=== PATIENT | male | born 1950 | race African-American/Black ===

== ENCOUNTER 2016-10-05 07:19 | Emergency (ER) | payer MEDICARE, OTHER ==
[~2016-10-05] VITALS: Ht 180.3 cm; Wt 89.1 kg
[~2016-10-05 07:19] MED LIST: AMOX250C4 PO; CARI350T PO; LORA10CA PO; PERCT10 PO
[2016-10-05] MEDS ORDERED: SODIUM CHLORIDE 0.9% 1,000 ML IV ONE (07:45)
[2016-10-05] MEDS ORDERED: ONDANSETRON HCL 4 MG/2 ML VIAL IVP ONE (07:45)
[2016-10-05 07:55] LABS: BASOPHILS % (AUTO) 0.6 % (0.0-2.0); EOSINOPHILS % (AUTO) 4.8 % (1.0-6.0); LYMPHOCYTES # (AUTO) 3.5 K/uL (1.0-4.8); LYMPHOCYTES % (AUTO) 38.1 % (22.0-44.0); MEAN CORPUSCULAR HEMOGLOBIN 26.3 pg (26.0-34.0); MEAN CORPUSCULAR HGB CONC 30.8 G/dL (31.0-37.0); MEAN CORPUSCULAR VOLUME 85 fL (80-100); MONOCYTES % (AUTO) 10.6 % (2.0-9.0); NEUTROPHILS # (AUTO) 4.2 K/uL (1.8-7.7); NEUTROPHILS % (AUTO) 45.9 % (40.0-70.0); PLATELET COUNT (AUTO) 280 K/uL (150-450); RED BLOOD CELL COUNT(AUTO) 5.71 MIL/uL (4.50-5.90); RED CELL DISTRIBUTION WIDTH 14.7 % (11.5-14.5); WHITE BLOOD COUNT (AUTO) 9.2 K/uL (4.5-11.0)
[2016-10-05 08:11] LABS: ANION GAP 10 mmol/L (8-16); CALCIUM, TOTAL 9.6 mg/dL (8.8-10.5); CARBON DIOXIDE 28 mmol/L (22-29); CHLORIDE 106 mmol/L (98-107); CREATININE 0.96 mg/dL (0.60-1.30); GLOMERULAR FILTR. RATE CALC > 60 mL/min (>60); POTASSIUM 4.4 mmol/L (3.5-5.1); SODIUM SERUM 144 mmol/L (136-145); UREA NITROGEN, BLOOD 15 mg/dL (7-18)
[2016-10-05 08:25] LABS: ALANINE AMINOTRANSFERASE 20 U/L (12-78); ALBUMIN 4.2 g/dL (3.4-5.0); ASPARTATE AMINOTRANSFERASE 10 U/L (15-37); BILIRUBIN,TOTAL 0.3 mg/dL (0.1-1.0); TOTAL PROTEIN, SERUM 8.3 g/dL (6.4-8.2)
[2016-10-05] MEDS ORDERED: METOCLOPRAMIDE HCL 5 MG/ML 2 ML VIAL IVP ONE (09:15)
[2016-10-05] MEDS ORDERED: DONNATAL/LIDOCAINE/MAALOX 55 ML BOTTLE PO ONE (09:15)
[2016-10-05 09:20] VITALS: BP 134/90
== END 2016-10-05 09:59 | disposition home or self-care (01) ==
LOC: EMS 07:21
DX: L30.9 Dermatitis, unspecified (principal); R10.9 Unspecified abdominal pain; R42 Dizziness and giddiness; R51 Headache
CPT/HCPCS: 36415; 71010; 80053; 83690; 84484; 85025; 93005; 96361; 96374; 96375; 99285; J2405; J2765; J7030

== ENCOUNTER 2016-11-06 10:55 | Emergency (ER) | payer MEDICARE, OTHER ==
[~2016-11-06] VITALS: Ht 180.3 cm; Wt 88.6 kg
[~2016-11-06 10:55] MED LIST changes: -AMOX250C4 PO; -CARI350T PO; -LORA10CA PO
[2016-11-06] MEDS ORDERED: LIDOCAINE HCL BUFFERED 1% W/EPI 1:100,000 20 ML VIAL INJ ONE (11:30)
[2016-11-06] MEDS ORDERED: PERTUSS(ACELL),DIPH,TET VAC/PF 0.5 ML VIAL IM ONE (13:15)
[2016-11-06 13:23] VITALS: BP 129/77
== END 2016-11-06 13:25 | disposition home or self-care (01) ==
LOC: EMS 10:58
DX: S81.012A Laceration without foreign body, left knee, initial encounter (principal); W20.8XXA Other cause of strike by thrown, projected or falling object, initial encounter; Y93.89 Activity, other specified; Y92.89 Other specified places as the place of occurrence of the external cause; Y99.8 Other external cause status
CPT/HCPCS: 12002; 90471; 90715; 99283; J3490

== ENCOUNTER 2016-11-13 07:58 | Emergency (ER) | payer MEDICARE, OTHER ==
[~2016-11-13] VITALS: Ht 180.3 cm; Wt 88.6 kg
[2016-11-13 08:00] VITALS: BP 126/95
== END 2016-11-13 09:00 | disposition home or self-care (01) ==
LOC: EMS 07:59
DX: S71.1 Open wound of thigh (principal)
CPT/HCPCS: 99281

== ENCOUNTER 2016-11-26 07:14 | Emergency (ER) | payer MEDICARE, OTHER ==
[~2016-11-26] VITALS: Ht 180.3 cm; Wt 88.6 kg
[2016-11-26] MEDS ORDERED: HYDROCORTISONE 2.5% 30 GM CREAM TP ONE (09:15)
[2016-11-26 09:38] VITALS: BP 132/90
== END 2016-11-26 09:41 | disposition home or self-care (01) ==
LOC: EMS 07:16
DX: R21 Rash and other nonspecific skin eruption (principal)
CPT/HCPCS: 99283

== ENCOUNTER 2017-05-26 16:15 | Emergency (ER) | payer MEDICARE, OTHER ==
[~2017-05-26] VITALS: Ht 180.3 cm; Wt 84.1 kg
[2017-05-26 16:54] VITALS: BP 125/94
[2017-05-26] MEDS ORDERED: DiphenhydrAMINE HCL 25 MG CAPSULE PO ONE (17:00)
== END 2017-05-26 17:05 | disposition home or self-care (01) ==
LOC: EMS 16:17
DX: T63.481A Toxic effect of venom of other arthropod, accidental (unintentional), initial encounter (principal); I10 Essential (primary) hypertension; Y92.89 Other specified places as the place of occurrence of the external cause
CPT/HCPCS: 99282

== ENCOUNTER 2018-05-19 05:22 | Emergency (ER) | payer MEDICARE, OTHER ==
[~2018-05-19] VITALS: Ht 180.3 cm; Wt 81.8 kg
[2018-05-19 05:23] VITALS: BP 136/92
[2018-05-19] MEDS ORDERED: GENTAMICIN SULFATE 0.3% OPHTHALMIC SOLUTION 5 ML OD ONE (08:00)
== END 2018-05-19 08:41 | disposition home or self-care (01) ==
LOC: EMS 05:22
DX: H10.9 Unspecified conjunctivitis (principal)

== ENCOUNTER 2018-08-08 18:55 | Emergency (ER) | payer MEDICARE, OTHER ==
[~2018-08-08] VITALS: Ht 177.8 cm; Wt 79.5 kg
[2018-08-08 19:41] VITALS: BP 132/89
[2018-08-08] MEDS ORDERED: HYDR15SO4 GT (19:49)
[2018-08-08] MEDS ORDERED: NYST100026 GT (19:49)
[2018-08-08] MEDS ORDERED: COMP10 PO (19:49)
[2018-08-08] MEDS ORDERED: AMOX600S16 GT (19:49)
== END 2018-08-08 21:00 | disposition left against medical advice (07) ==
LOC: EMS 18:57
DX: R05 Cough (principal); Z53.21 Procedure and treatment not carried out due to patient leaving prior to being seen by health care provider

== ENCOUNTER 2019-12-08 00:12 | Emergency (ER) | payer MEDICARE, OTHER ==
[~2019-12-08] VITALS: Ht 180.3 cm; Wt 84.1 kg
[~2019-12-08 00:12] MED LIST changes: +AMOX600S16 GT; +COMP10 PO; +HYDR15SO4 GT; +NYST100026 GT; -PERCT10 PO
[2019-12-08 01:25] LABS: BASOPHILS % (AUTO) 0.8 % (0.0-2.0); EOSINOPHILS % (AUTO) 5.2 % (1.0-6.0); HEMATOCRIT 39.7 % (41-53); HEMOGLOBIN 12.9 g/dL (13.5-17.5); LYMPHOCYTES # (AUTO) 1.1 K/uL (1.0-4.8); LYMPHOCYTES % (AUTO) 27.2 % (22.0-44.0); MEAN CORPUSCULAR HEMOGLOBIN 27.4 pg (26.0-34.0); MEAN CORPUSCULAR HGB CONC 32.6 G/dL (31.0-37.0); MEAN CORPUSCULAR VOLUME 84 fL (80-100); MONOCYTES # (AUTO) 0.5 K/uL (0.1-1.0); NEUTROPHILS # (AUTO) 2.3 K/uL (1.8-7.7); NEUTROPHILS % (AUTO) 54.8 % (40.0-70.0); PLATELET COUNT (AUTO) 237 K/uL (150-450); RED BLOOD CELL COUNT(AUTO) 4.72 MIL/uL (4.50-5.90); RED CELL DISTRIBUTION WIDTH 14.7 % (11.5-14.5)
[2019-12-08 01:26] LABS: ANION GAP 8 mmol/L (8-16); CALCIUM, TOTAL 9.6 mg/dL (8.8-10.5); CARBON DIOXIDE 28 mmol/L (22-29); CHLORIDE 105 mmol/L (98-107); CREATININE 1.06 mg/dL (0.60-1.30); GLOMERULAR FILTR. RATE CALC > 60 mL/min (>60); GLUCOSE,RANDOM 105 mg/dL (70-110); POTASSIUM 4.7 mmol/L (3.5-5.1); SODIUM SERUM 141 mmol/L (136-145); UREA NITROGEN, BLOOD 13 mg/dL (7-18)
[2019-12-08 01:32] LABS: ALANINE AMINOTRANSFERASE 24 U/L (12-78); ALBUMIN 4.3 g/dL (3.4-5.0); ALKALINE PHOSPHATASE 64 U/L (46-116); ASPARTATE AMINOTRANSFERASE 23 U/L (15-37); BILIRUBIN,TOTAL 0.5 mg/dL (0.1-1.0); TOTAL PROTEIN, SERUM 8.4 g/dL (6.4-8.2)
[2019-12-08] MEDS ORDERED: PB/HYOSCY/ATR/SCOP/LIDO/MAALOX 55 ML BOTTLE PO ONE (02:45)
[2019-12-08] MEDS ORDERED: FAMOTIDINE 20 MG TABLET PO ONE (02:45)
[2019-12-08 03:07] LABS: LIPASE 41 U/L (73-393)
[2019-12-08 03:53] VITALS: BP 118/80
== END 2019-12-08 04:00 | disposition home or self-care (01) ==
LOC: EMS 00:12
DX: R42 Dizziness and giddiness (principal); R10.12 Left upper quadrant pain; R11.0 Nausea; Z79.899 Other long term (current) drug therapy
CPT/HCPCS: 93005

== ENCOUNTER 2020-06-12 07:09 | Emergency (ER) | payer MEDICARE, OTHER ==
[~2020-06-12] VITALS: Ht 177.8 cm; Wt 81.8 kg
[~2020-06-12 07:09] MED LIST changes: -NYST100026 GT; +NYST100033 GT
[2020-06-12 07:14] VITALS: BP 125/96
[2020-06-12 08:43] LABS: COVID AG,FIA SOURCE NASOPHARYNGEAL
== END 2020-06-12 11:23 | disposition home or self-care (01) ==
LOC: EMS 07:09
DX: Z20.828 Contact with and (suspected) exposure to other viral communicable diseases (principal)
CPT/HCPCS: 87426; 99283; U0003

== ENCOUNTER 2021-04-28 05:05 | Emergency (ER) | payer MEDICARE, OTHER ==
[~2021-04-28] VITALS: Ht 180.3 cm; Wt 81.8 kg
[~2021-04-28 05:05] MED LIST changes: -COMP10 PO; +PROC10TA61 PO
[2021-04-28] MEDS ORDERED: MORPHINE SULFATE 2 MG/ML SYRINGE IVP ONE (06:00)
[2021-04-28 06:54] LABS: BASOPHILS % (AUTO) 0.7 % (0.0-2.0); EOSINOPHILS % (AUTO) 3.5 % (1.0-6.0); HEMATOCRIT 44.8 % (41-53); HEMOGLOBIN 14.4 g/dL (13.5-17.5); LYMPHOCYTES # (AUTO) 1.8 K/uL (1.0-4.8); LYMPHOCYTES % (AUTO) 29.7 % (22.0-44.0); MEAN CORPUSCULAR HEMOGLOBIN 26.8 pg (26.0-34.0); MEAN CORPUSCULAR HGB CONC 32.2 G/dL (31.0-37.0); MEAN CORPUSCULAR VOLUME 83 fL (80-100); MONOCYTES # (AUTO) 0.5 K/uL (0.1-1.0); MONOCYTES % (AUTO) 8.8 % (2.0-9.0); NEUTROPHILS # (AUTO) 3.5 K/uL (1.8-7.7); NEUTROPHILS % (AUTO) 57.3 % (40.0-70.0); PLATELET COUNT (AUTO) 230 K/uL (150-450); RED BLOOD CELL COUNT(AUTO) 5.39 MIL/uL (4.50-5.90); RED CELL DISTRIBUTION WIDTH 15.8 % (11.5-14.5)
[2021-04-28 06:59] LABS: ANION GAP 6 mmol/L (8-16); CALCIUM, TOTAL 9.8 mg/dL (8.8-10.5); CARBON DIOXIDE 32 mmol/L (22-29); CHLORIDE 103 mmol/L (98-107); CREATININE 1.11 mg/dL (0.60-1.30); GLOMERULAR FILTR. RATE CALC > 60 mL/min (>60); GLUCOSE,RANDOM 98 mg/dL (70-110); POTASSIUM 4.2 mmol/L (3.5-5.1); SODIUM SERUM 141 mmol/L (136-145); UREA NITROGEN, BLOOD 14 mg/dL (7-18)
[2021-04-28 07:05] LABS: ALANINE AMINOTRANSFERASE 23 U/L (12-78); ALBUMIN 4.6 g/dL (3.4-5.0); ALKALINE PHOSPHATASE 80 U/L (46-116); ASPARTATE AMINOTRANSFERASE 18 U/L (15-37); BILIRUBIN,TOTAL 0.4 mg/dL (0.1-1.0); LIPASE 55 U/L (73-393)
[2021-04-28 07:42] LABS: BILIRUBIN,URINE NEGATIVE (NEGATIVE); GLUCOSE, URINE (UA) NEGATIVE (NEGATIVE); KETONES,URINE NEGATIVE (NEGATIVE); LEUKOCYTE ESTERASE ,URINE NEGATIVE (NEGATIVE); NITRATE,URINE NEGATIVE (NEGATIVE); OCCULT BLOOD,URINE NEGATIVE (NEGATIVE); PROTEIN,URINE NEGATIVE (NEGATIVE); UROBILINOGEN,URINE 0.2 mg/dL (<=1.0)
[2021-04-28 07:46] LABS: APPEARANCE,URINE HAZY (CLEAR)
[2021-04-28] MEDS ORDERED: PB/HYOSCY/ATR/SCOP/LIDO/MAALOX 55 ML BOTTLE PO ONE (08:00)
[2021-04-28 09:01] VITALS: BP 155/100
== END 2021-04-28 09:02 | disposition home or self-care (01) ==
LOC: EMS 05:07
DX: R10.13 Epigastric pain (principal); R42 Dizziness and giddiness
CPT/HCPCS: 71045; 74176; 80053; 81003; 83690; 84484; 85025; 93005; 99285; J2270; 36415-L1; 36415-TC

== ENCOUNTER 2021-08-15 18:34 | Emergency (ER) | payer MEDICARE, OTHER ==
[~2021-08-15] VITALS: Ht 180.3 cm; Wt 81.8 kg
[2021-08-15 20:15] VITALS: BP 134/84
== END 2021-08-15 20:19 | disposition home or self-care (01) ==
LOC: EMS 18:44
DX: S90.112A Contusion of left great toe without damage to nail, initial encounter (principal); Z79.899 Other long term (current) drug therapy; W29.4XXA Contact with nail gun, initial encounter; Y93.89 Activity, other specified; Y92.89 Other specified places as the place of occurrence of the external cause; Y99.8 Other external cause status
CPT/HCPCS: 99281; Z7502

== ENCOUNTER 2022-01-16 15:17 | Inpatient (IN) | payer MEDICARE, OTHER ==
[~2022-01-16] VITALS: Ht 177.8 cm; Wt 80.8 kg
[2022-01-16 16:41] LABS: COVID AG,FIA SOURCE NASAL SWAB
[2022-01-16 17:06] LABS: INFLUENZA TYPE A NEGATIVE FOR TYPE A (NEGATIVE); INFLUENZA TYPE B NEGATIVE FOR TYPE B (NEGATIVE)
[2022-01-16 17:32] LABS: BASOPHILS % (AUTO) 0.2 % (0.0-2.0); EOSINOPHILS % (AUTO) 0 % (1.0-6.0); HEMATOCRIT 45.4 % (41-53); HEMOGLOBIN 14.7 g/dL (13.5-17.5); LYMPHOCYTES # (AUTO) 0.8 K/uL (1.0-4.8); LYMPHOCYTES % (AUTO) 6.3 % (22.0-44.0); MEAN CORPUSCULAR HEMOGLOBIN 26.5 pg (26.0-34.0); MEAN CORPUSCULAR HGB CONC 32.4 G/dL (31.0-37.0); MEAN CORPUSCULAR VOLUME 82 fL (80-100); MONOCYTES # (AUTO) 0.7 K/uL (0.1-1.0); MONOCYTES % (AUTO) 5.1 % (2.0-9.0); NEUTROPHILS # (AUTO) 11.7 K/uL (1.8-7.7); PLATELET COUNT (AUTO) 237 K/uL (150-450); RED BLOOD CELL COUNT(AUTO) 5.56 MIL/uL (4.50-5.90); RED CELL DISTRIBUTION WIDTH 15.3 % (11.5-14.5)
[2022-01-16 17:40] LABS: NEUTROPHILS % (AUTO) 88.4 % (40.0-70.0)
[2022-01-16 17:44] LABS: ANION GAP 18 mmol/L (8-16); CALCIUM, TOTAL 10.1 mg/dL (8.8-10.5); CARBON DIOXIDE 21 mmol/L (22-29); CHLORIDE 100 mmol/L (98-107); CREATININE 1.29 mg/dL (0.60-1.30); GLUCOSE,RANDOM 148 mg/dL (70-110); POTASSIUM 3.9 mmol/L (3.5-5.1); SODIUM SERUM 139 mmol/L (136-145); UREA NITROGEN, BLOOD 17 mg/dL (7-18)
[2022-01-16 17:45] LABS: GLOMERULAR FILTR. RATE CALC > 60 mL/min (>60)
[2022-01-16 17:50] LABS: ALANINE AMINOTRANSFERASE 23 U/L (12-78); ALBUMIN 4.4 g/dL (3.4-5.0); ASPARTATE AMINOTRANSFERASE 20 U/L (15-37); BILIRUBIN,TOTAL 0.9 mg/dL (0.1-1.0); LIPASE 31 U/L (73-393); TOTAL PROTEIN, SERUM 8.7 g/dL (6.4-8.2)
[2022-01-16 17:58] LABS: B-TYPE NATRIURETIC PEPTIDE 87 pg/mL (0-100)
[2022-01-16 18:01] LABS: ALKALINE PHOSPHATASE 76 U/L (46-116)
[2022-01-16] MEDS ORDERED: BARIUM SULFATE 0.1% SUSPENSION 450 ML BOTTLE PO ONE (18:15)
[2022-01-16] MEDS ORDERED: MORPHINE SULFATE 4 MG/ML SYRINGE IVP ONE (18:15)
[2022-01-16] MEDS ORDERED: ONDANSETRON HCL 4 MG/2 ML VIAL IVP ONE (18:15)
[2022-01-16] MEDS ORDERED: IOHEXOL 350 MG/ML 100 ML VIAL ONE (18:47)
[2022-01-16] MEDS ORDERED: SODIUM CHLORIDE 0.9% 100 ML ONE (18:47)
[2022-01-16] MEDS ORDERED: SODIUM CHLORIDE 0.9% 1,000 ML IV ONE (20:30)
[2022-01-16 20:57] LABS: APPEARANCE,URINE CLEAR (CLEAR); BILIRUBIN,URINE NEGATIVE (NEGATIVE); GLUCOSE, URINE (UA) TRACE mg/dL (NEGATIVE); LEUKOCYTE ESTERASE ,URINE NEGATIVE (NEGATIVE); NITRATE,URINE NEGATIVE (NEGATIVE); OCCULT BLOOD,URINE NEGATIVE (NEGATIVE); PROTEIN,URINE 30-70 mg/dL (NEGATIVE); UROBILINOGEN,URINE <=1.0 mg/dL (<=1.0)
[2022-01-16] MEDS ORDERED: PIPERACILLIN/TAZO 3.375 GM/D5W 50 ML IV ONE (21:45)
[2022-01-16] MEDS ORDERED: ONDANSETRON HCL 4 MG/2 ML VIAL IVP PRN (22:00)
[2022-01-16] MEDS ORDERED: RINGERS LACTATED IV ONE (22:00)
[2022-01-16] MEDS ORDERED: ACETAMINOPHEN 325 MG TABLET PO PRN (22:00)
[2022-01-16] MEDS: RINGERS SOLUTION,LACTATED 1,000 ML IV SCH (22:00)
[2022-01-16 23:03] LABS: LACTIC ACID 3.3 mmol/L (0.4-2.0)
[2022-01-16] MEDS ORDERED: RINGERS SOLUTION,LACTATED 500 ML IV ONE (23:15)
[2022-01-16] MEDS ORDERED: CLINDAMYCIN 600 MG/D5% WATER 50 ML IV ONE (23:45)
[2022-01-17] MEDS ORDERED: CefTRIAXone SODIUM 1 GM/VIAL IM ONE (00:30)
[2022-01-17] MEDS ORDERED: SODIUM CHLORIDE 0.9% 250 ML IV ONE (01:10)
[2022-01-17] MEDS: MORPHINE SULFATE 4 MG/ML SYRINGE IVP PRN (01:25)
[2022-01-17] MEDS ORDERED: CefTRIAXone SODIUM 2 GM/VIAL IM ONE (02:00)
[2022-01-17 02:06] VITALS: BP 107/77
[2022-01-17] MEDS ORDERED: SODIUM CHLORIDE 0.9% 100 ML ONE (02:28)
[2022-01-17 04:00] VITALS: BP 108/76
[2022-01-17] MEDS ORDERED: SODIUM CL IRRIG SOLN BAG 3,000 ML IRRIG ONE (05:38)
[2022-01-17] MEDS ORDERED: BUPIVACAINE 0.25%/EPI 1:200,000/PF 10 ML VIAL ONE ×3 (05:38→06:18)
[2022-01-17] MEDS ORDERED: RINGERS SOLUTION,LACTATED 1,000 ML IV ONE (06:05)
[2022-01-17 06:30] LABS: BASOPHILS % (AUTO) 0.2 % (0.0-2.0); EOSINOPHILS % (AUTO) 0 % (1.0-6.0); HEMATOCRIT 44.9 % (41-53); HEMOGLOBIN 15.1 g/dL (13.5-17.5); LYMPHOCYTES # (AUTO) 0.7 K/uL (1.0-4.8); LYMPHOCYTES % (AUTO) 8.7 % (22.0-44.0); MEAN CORPUSCULAR HGB CONC 33.7 G/dL (31.0-37.0); MEAN CORPUSCULAR VOLUME 80 fL (80-100); MONOCYTES # (AUTO) 0.4 K/uL (0.1-1.0); MONOCYTES % (AUTO) 4.6 % (2.0-9.0); NEUTROPHILS # (AUTO) 6.7 K/uL (1.8-7.7); PLATELET COUNT (AUTO) 230 K/uL (150-450); RED BLOOD CELL COUNT(AUTO) 5.59 MIL/uL (4.50-5.90); RED CELL DISTRIBUTION WIDTH 15.1 % (11.5-14.5)
[2022-01-17] MEDS: RINGERS SOLUTION,LACTATED 1,000 ML IV SCH ×2 (06:30→16:55)
[2022-01-17 06:48] LABS: ANION GAP 12 mmol/L (8-16); CARBON DIOXIDE 24 mmol/L (22-29); CHLORIDE 102 mmol/L (98-107); CREATININE 1.27 mg/dL (0.60-1.30); GLUCOSE,RANDOM 137 mg/dL (70-110); POTASSIUM 3.9 mmol/L (3.5-5.1); SODIUM SERUM 138 mmol/L (136-145); UREA NITROGEN, BLOOD 23 mg/dL (7-18)
[2022-01-17 06:57] LABS: CALCIUM, TOTAL 9.1 mg/dL (8.8-10.5)
[2022-01-17 07:02] LABS: NEUTROPHILS % (AUTO) 86.5 % (40.0-70.0)
[2022-01-17] MEDS ORDERED: MEPERIDINE-PF 25 MG/ML VIAL IVP PRN (07:15)
[2022-01-17] MEDS ORDERED: FentaNYL CITRATE PF 100 MCG/2 ML VIAL IVP PRN (07:15)
[2022-01-17] MEDS ORDERED: HYDROmorphone 2 MG/ML VIAL IVP PRN (07:15)
[2022-01-17 07:18] LABS: GLOMERULAR FILTR. RATE CALC > 60 mL/min (>60)
[2022-01-17] MEDS: OXYGEN THERAPY IH SCH ×2 (08:00→20:30)
[2022-01-17] MEDS: PIPERACILLIN/TAZO 3.375 GM/D5W 50 ML IV SCH ×3 (08:54→20:30)
[2022-01-17] MEDS: ACETAMINOPHEN 500 MG TABLET PO SCH ×3 (09:00→20:47)
[2022-01-17 09:28] VITALS: BP 106/73
[2022-01-17] MEDS: IBUPROFEN 600 MG TABLET PO SCH ×3 (11:48→23:51)
[2022-01-17 16:00] VITALS: BP 107/70
[2022-01-17] MEDS: OxyCODONE HCL 5 MG IR TABLET PO PRN (18:25)
[2022-01-17] MEDS ORDERED: LACTULOSE 20 GM/30 ML SOLUTION UDCUP PO PRN (19:45)
[2022-01-17 21:30] VITALS: BP 105/66
[2022-01-17] MEDS: HEPARIN SODIUM,PORCINE 5,000 UNITS/ML VIAL SQ SCH (23:51)
[2022-01-18] MEDS: PIPERACILLIN/TAZO 3.375 GM/D5W 50 ML IV SCH ×4 (01:14→20:08)
[2022-01-18] MEDS: RINGERS SOLUTION,LACTATED 1,000 ML IV SCH ×3 (01:16→18:48)
[2022-01-18] MEDS: IBUPROFEN 600 MG TABLET PO SCH ×4 (06:00→23:23)
[2022-01-18 06:08] VITALS: BP 109/73
[2022-01-18] MEDS ORDERED: ONDANSETRON HCL 4 MG/2 ML VIAL IVP ONE (06:08)
[2022-01-18] MEDS ORDERED: KETOROLAC TROMETHAMINE 60 MG/2 ML VIAL IM ONE (06:08)
[2022-01-18] MEDS ORDERED: PROPOFOL 1% 20 ML VIAL IVP ONE (06:08)
[2022-01-18] MEDS ORDERED: ROCURONIUM BROMIDE 10 MG/ML 5 ML VIAL IVP ONE (06:08)
[2022-01-18] MEDS ORDERED: FentaNYL CITRATE PF 100 MCG/2 ML VIAL IVP ONE (06:08)
[2022-01-18] MEDS ORDERED: DEXAMETHASONE SOD PHOS 4 MG/ML VIAL IVP ONE (06:08)
[2022-01-18] MEDS ORDERED: 0.9% SODIUM CHLORIDE 10 ML VIAL IVP ONE (06:08)
[2022-01-18] MEDS ORDERED: LIDOCAINE/PF 2% 5 ML VIAL IM ONE (06:08)
[2022-01-18] MEDS: OXYGEN THERAPY IH SCH ×2 (08:00→20:08)
[2022-01-18] MEDS: HEPARIN SODIUM,PORCINE 5,000 UNITS/ML VIAL SQ SCH ×3 (08:26→23:29)
[2022-01-18] MEDS: MORPHINE SULFATE 4 MG/ML SYRINGE IVP PRN (08:55)
[2022-01-18] MEDS: ACETAMINOPHEN 500 MG TABLET PO SCH ×3 (09:00→21:00)
[2022-01-18] MEDS ORDERED: AMOX1TAB15 PO ×2 (10:29→10:34)
[2022-01-18] MEDS ORDERED: MAGNESIUM OXIDE 400 MG TABLET PO ONE (10:30)
[2022-01-18] MEDS ORDERED: MORPHINE SULFATE 2 MG/ML SYRINGE IVP PRN (10:45)
[2022-01-18] MEDS: OxyCODONE HCL 5 MG IR TABLET PO PRN (14:36)
[2022-01-18 15:29] VITALS: BP 121/77
[2022-01-18 20:45] VITALS: BP 144/91
[2022-01-19] MEDS: PIPERACILLIN/TAZO 3.375 GM/D5W 50 ML IV SCH ×4 (01:28→20:16)
[2022-01-19] MEDS ORDERED: LOPERAMIDE HCL 2 MG CAPSULE PO ONE (04:30)
[2022-01-19] MEDS: RINGERS SOLUTION,LACTATED 1,000 ML IV SCH ×3 (04:42→15:54)
[2022-01-19 05:26] LABS: C.DIFF GDH ANTIGEN, Stool Negative (Negative); C.DIFF TOXINS A&B, Stool Negative (Negative)
[2022-01-19 05:31] VITALS: BP 119/89
[2022-01-19] MEDS: IBUPROFEN 600 MG TABLET PO SCH ×4 (05:36→23:33)
[2022-01-19 06:56] LABS: BASOPHILS % (AUTO) 0.2 % (0.0-2.0); EOSINOPHILS % (AUTO) 0.8 % (1.0-6.0); HEMATOCRIT 36.8 % (41-53); HEMOGLOBIN 12.1 g/dL (13.5-17.5); LYMPHOCYTES # (AUTO) 0.5 K/uL (1.0-4.8); LYMPHOCYTES % (AUTO) 4.6 % (22.0-44.0); MEAN CORPUSCULAR HEMOGLOBIN 26.6 pg (26.0-34.0); MEAN CORPUSCULAR VOLUME 81 fL (80-100); MONOCYTES # (AUTO) 0.6 K/uL (0.1-1.0); RED BLOOD CELL COUNT(AUTO) 4.56 MIL/uL (4.50-5.90); RED CELL DISTRIBUTION WIDTH 14.8 % (11.5-14.5)
[2022-01-19 07:02] LABS: NEUTROPHILS % (AUTO) 89.4 % (40.0-70.0)
[2022-01-19 07:03] LABS: PLATELET COUNT (AUTO) 225 K/uL (150-450)
[2022-01-19] MEDS: OXYGEN THERAPY IH SCH ×2 (08:00→20:20)
[2022-01-19] MEDS: HEPARIN SODIUM,PORCINE 5,000 UNITS/ML VIAL SQ SCH ×3 (08:43→23:31)
[2022-01-19] MEDS ORDERED: SODIUM CHLORIDE 0.9% 500 ML IV ONE (08:49)
[2022-01-19] MEDS: ACETAMINOPHEN 500 MG TABLET PO SCH ×3 (09:00→20:20)
[2022-01-19 09:35] VITALS: BP 117/75
[2022-01-19 14:48] VITALS: BP 118/82
[2022-01-19] MEDS: LOPERAMIDE HCL 2 MG CAPSULE PO PRN (17:02)
[2022-01-19] MEDS: LACTOBACILLUS ACIDOPHILUS/BULGARICUS GRANULES PACKET PO SCH ×2 (17:02→20:16)
[2022-01-19 19:50] VITALS: BP 113/77
[2022-01-20] MEDS: PIPERACILLIN/TAZO 3.375 GM/D5W 50 ML IV SCH ×4 (02:28→20:49)
[2022-01-20] MEDS: RINGERS SOLUTION,LACTATED 1,000 ML IV SCH ×3 (02:28→14:46)
[2022-01-20 04:10] VITALS: BP 126/77
[2022-01-20] MEDS: LOPERAMIDE HCL 2 MG CAPSULE PO PRN (04:27)
[2022-01-20] MEDS: IBUPROFEN 600 MG TABLET PO SCH ×4 (06:00→23:45)
[2022-01-20 07:44] VITALS: BP 130/76
[2022-01-20] MEDS: OXYGEN THERAPY IH SCH ×2 (08:09→20:50)
[2022-01-20] MEDS: HEPARIN SODIUM,PORCINE 5,000 UNITS/ML VIAL SQ SCH ×3 (08:13→23:33)
[2022-01-20] MEDS: VANCOMYCIN HCL 125 MG/2.5 ML SOLUTION ORAL.SYG PO SCH ×3 (08:13→23:42)
[2022-01-20] MEDS: ACETAMINOPHEN 500 MG TABLET PO SCH ×3 (08:25→20:50)
[2022-01-20] MEDS: LACTOBACILLUS ACIDOPHILUS/BULGARICUS GRANULES PACKET PO SCH ×3 (08:26→20:50)
[2022-01-20 15:31] VITALS: BP 136/80
[2022-01-20 16:44] VITALS: BP 133/81
[2022-01-20 18:31] VITALS: BP 115/76
[2022-01-20 20:20] VITALS: BP 124/86
[2022-01-21] MEDS: RINGERS SOLUTION,LACTATED 1,000 ML IV SCH ×3 (00:49→13:33)
[2022-01-21] MEDS: PIPERACILLIN/TAZO 3.375 GM/D5W 50 ML IV SCH ×4 (01:09→20:21)
[2022-01-21 05:05] VITALS: BP 120/71
[2022-01-21 07:51] VITALS: BP 126/81
[2022-01-21] MEDS: OXYGEN THERAPY IH SCH (08:00)
[2022-01-21] MEDS: VANCOMYCIN HCL 125 MG/2.5 ML SOLUTION ORAL.SYG PO SCH ×2 (08:52→15:43)
[2022-01-21] MEDS: LACTOBACILLUS ACIDOPHILUS/BULGARICUS GRANULES PACKET PO SCH (09:00)
[2022-01-21] MEDS: ACETAMINOPHEN 500 MG TABLET PO SCH ×3 (09:00→20:26)
[2022-01-21] MEDS: HEPARIN SODIUM,PORCINE 5,000 UNITS/ML VIAL SQ SCH ×2 (09:04→15:43)
[2022-01-21] MEDS: IBUPROFEN 600 MG TABLET PO SCH ×3 (12:00→23:57)
[2022-01-21 15:37] VITALS: BP 125/81
[2022-01-21] MEDS: LACTOBACILLUS ACIDOPHILUS/BULGARICUS TABLET PO SCH ×2 (15:43→20:21)
[2022-01-21 20:26] VITALS: BP 146/87
[2022-01-22] MEDS: HEPARIN SODIUM,PORCINE 5,000 UNITS/ML VIAL SQ SCH ×3 (00:04→16:00)
[2022-01-22] MEDS: PIPERACILLIN/TAZO 3.375 GM/D5W 50 ML IV SCH ×4 (02:07→20:42)
[2022-01-22] MEDS: IBUPROFEN 600 MG TABLET PO SCH ×3 (05:16→18:00)
[2022-01-22 05:28] VITALS: BP 123/77
[2022-01-22] MEDS: RINGERS SOLUTION,LACTATED 1,000 ML IV SCH ×2 (06:12→13:46)
[2022-01-22 07:44] VITALS: BP 136/84
[2022-01-22] MEDS: VANCOMYCIN HCL 125 MG/2.5 ML SOLUTION ORAL.SYG PO SCH ×3 (08:00→15:42)
[2022-01-22] MEDS ORDERED: SODIUM CHLORIDE 0.9% 100 ML ONE (08:39)
[2022-01-22] MEDS: LACTOBACILLUS ACIDOPHILUS/BULGARICUS TABLET PO SCH ×3 (08:43→20:42)
[2022-01-22] MEDS: ACETAMINOPHEN 500 MG TABLET PO SCH ×3 (08:43→20:51)
[2022-01-22 15:51] VITALS: BP 118/69
[2022-01-22 16:06] LABS: OVA AND PARASITES EXAM Final report
[2022-01-22 20:33] VITALS: BP 131/67
[2022-01-23] MEDS: VANCOMYCIN HCL 125 MG/2.5 ML SOLUTION ORAL.SYG PO SCH ×2 (00:08→08:18)
[2022-01-23] MEDS: RINGERS SOLUTION,LACTATED 1,000 ML IV SCH ×3 (00:08→14:30)
[2022-01-23] MEDS: PIPERACILLIN/TAZO 3.375 GM/D5W 50 ML IV SCH ×3 (02:30→14:00)
[2022-01-23 05:27] VITALS: BP 121/79
[2022-01-23] MEDS: IBUPROFEN 600 MG TABLET PO SCH ×3 (05:28→12:00)
[2022-01-23 08:00] VITALS: BP 122/73
[2022-01-23] MEDS: HEPARIN SODIUM,PORCINE 5,000 UNITS/ML VIAL SQ SCH ×2 (08:00)
[2022-01-23] MEDS: ACETAMINOPHEN 500 MG TABLET PO SCH (08:19)
[2022-01-23] MEDS: LACTOBACILLUS ACIDOPHILUS/BULGARICUS TABLET PO SCH (08:19)
== END 2022-01-23 15:20 | disposition home or self-care (01) | DRG 854 ==
LOC: EMS 15:19 → 6S 01-17 00:33 → 6N 01-17 21:55 → 6S 01-18 05:05
PROVIDERS: ADMIT Internal Medicine; ATTEND Internal Medicine
PROC: 0DTJ4ZZ Resection of Appendix, Percutaneous Endoscopic Approach (ICD-10-PCS; principal; 2022-01-17 06:30)
DX: A41.9 Sepsis, unspecified organism (principal); K35.20 Acute appendicitis with generalized peritonitis, without abscess; K91.31 Postprocedural partial intestinal obstruction; B96.89 Other specified bacterial agents as the cause of diseases classified elsewhere; J44.9 Chronic obstructive pulmonary disease, unspecified; Z20.822 Contact with and (suspected) exposure to COVID-19; Z80.9 Family history of malignant neoplasm, unspecified; Z85.818 Personal history of malignant neoplasm of other sites of lip, oral cavity, and pharynx; Z79.899 Other long term (current) drug therapy; Y83.9 Surgical procedure, unspecified as the cause of abnormal reaction of the patient, or of later complication, without mention of misadventure at the time of the procedure
CPT/HCPCS: 74019; 74021; 74022; 74177; 80048; 80053; 81003; 83605; 83690; 83735; 83880; 84484; 85025; 87040; 87077; 87081; 87101; 87177; 87205; 87324; 87449; 87804; 88304; 89055; 93005; 99291; G0238; J0696; J1100; J1644; J1885; J2270; J2405; J2543; J2704; J3010; J3490; J7030; J7040; J7050; J7120; Q9967; 36415-L1; 36415-TC; Z7610

== ENCOUNTER 2024-09-04 08:18 | Emergency (ER) | payer MEDICARE, OTHER ==
[~2024-09-04] VITALS: Ht 180.3 cm; Wt 81.8 kg
[~2024-09-04 08:18] MED LIST changes: +AMOX1TAB15 PO; -AMOX600S16 GT; -HYDR15SO4 GT; -NYST100033 GT; -PROC10TA61 PO
[2024-09-04 08:24] VITALS: TEMP 98.5
[2024-09-04] MEDS ORDERED: OXYC-42 PO (08:25)
[2024-09-04] MEDS: PROPARACAINE HCL 0.5% 15 ML OPHTHALMIC SOLUTION OS ONE (08:44)
[2024-09-04] MEDS: SODIUM CHLORIDE 0.9% 1,000 ML IV ONE (08:44)
[2024-09-04] MEDS ORDERED: CIPR2.5D17 OS (09:29)
[2024-09-04 09:30] VITALS: BP 165/91; PULSE 82; RESP 18; O2SAT 99
== END 2024-09-04 09:51 | disposition home or self-care (01) ==
LOC: EMS 08:19
DX: T15.92XA Foreign body on external eye, part unspecified, left eye, initial encounter (principal); W44.9XXA Unspecified foreign body entering into or through a natural orifice, initial encounter; Y93.89 Activity, other specified; Y92.89 Other specified places as the place of occurrence of the external cause; Y99.8 Other external cause status
CPT/HCPCS: 99283; 96360; J7030